=== PATIENT | male | born 1990 | race Caucasian/White ===

== ENCOUNTER 2018-04-23 14:54 | Emergency (ER) | payer BC, MEDICAID ==
[2018-04-23 15:01] VITALS: BP 144/91; PULSE 105; RESP 16; TEMP 98.9; O2SAT 100
[2018-04-23] MEDS ORDERED: White Petrolatum/Mineral Oil Ophth Oint(3.5 gm) OD STA (15:35)
--- NOTE | 2018-04-23 15:38 | C.PDOC ---
History Of Present Illness 27 y/o male presents to the ER with new onset of right-sided facial weakness for two days. The patient admits to difficulty closing right eye when drinking. Otherwise, he denies vision/ eye pain, headache, rash or fever. He also denies any history of chickenpox. Time Seen by Provider: 04/23/18 15:12 Chief Complaint (Nursing): Eye Problem History Per: Patient History/Exam Limitations: no limitations Onset/Duration Of Symptoms: Days Current Symptoms Are (Timing): Still Present Recent travel outside of the [place]: No Past Medical History Reviewed: Historical Data, Nursing Documentation, Vital Signs Vital Signs: Last Vital Signs Temp 98.9 F 04/23/18 14:58 Pulse 105 H 04/23/18 14:58 Resp 16 04/23/18 14:58 BP 144/91 H 04/23/18 14:58 Pulse Ox 100 04/23/18 15:54 - Medical History PMH: No Chronic Diseases Surgical History: No Surg Hx Family History: States: Unknown Family Hx - Social History Hx Alcohol Use: No Hx Substance Use: No - Immunization History Hx Tetanus Toxoid Vaccination: No Hx Influenza Vaccination: No Hx Pneumococcal Vaccination: No Review Of Systems Except As Marked, All Systems Reviewed And Found Negative. Constitutional: Negative for: Fever Eyes: Negative for: Pain, Vision Change Skin: Negative for: Rash Neurological: Negative for: Headache Physical Exam - Physical Exam Appears: Well, Non-toxic, No Acute Distress Skin: Normal Color, Warm, No Rash Head: Atraumatic, Normacephalic Eye(s): bilateral: Normal Inspection, PERRL, EOMI Ear(s): Bilateral: Normal Oral Mucosa: Moist Neck: Normal ROM Chest: Symmetrical Cardiovascular: Rhythm Regular, No Murmur Respiratory: Normal Breath Sounds, Wheezing, Other (NARD) Gastrointestinal/Abdominal: Bowel Sounds, No Soft Extremity: Normal ROM Extremity: Bilateral: Atraumatic, Normal Color And Temperature, Normal ROM Pulses: Left Radial: Normal, Right Radial: Normal Neurological/Psych: Oriented x3, Other (incomplete closing of right eye, flattening on right forehead) Gait: Steady Other Neurological Findings: Other (Vera's Palsy) ED Course And Treatment O2 Sat by Pulse Oximetry: 100 (RA) Pulse Ox Interpretation: Normal Progress Note: Impression: 27 y/o male with right-sided facial weakness. Plan: --predniSONE Tab 60 mg PO Medical Decision Making Medical Decision Making: Eye patch applied. Inability to apply lacrilube due to unavailability. Disposition Counseled Patient/Family Regarding: Diagnosis, Need For Followup, Rx Given - Disposition Referrals: [facility] [Outside] [facility] [Outside] Adriano Washburn MD [Staff Provider] - Disposition: HOME/ ROUTINE Disposition Time: 15:40 Condition: IMPROVED Prescriptions: Mineral Oil/White Petrolatum [Lacri-Lube] 1 applic OU PRN PRN #1 tube PRN Reason: Dry Eyes predniSONE [Prednisone] 60 mg PO DAILY #12 tab Instructions: Vera's Palsy (DC) Forms: [employer] (Qatari), Work Excuse - Clinical Impression Clinical Impression: Vera palsy - 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 - Scribe Statement The provider has reviewed the documentation as recorded by the Scribe (Latoya Hdez) Provider Attestation: All medical record entries made by the Scribe were at my direction and personally dictated by me. I have reviewed the chart and agree that the record accurately reflects my personal performance of the history, physical exam, medical decision making, and the department course for this patient. I have also personally directed, reviewed, and agree with the discharge instructions and disposition.
== END 2018-04-23 15:50 | disposition home or self-care (01) ==
LOC: C.ER 14:54
DX: G51.0 Bell's palsy (principal)

== ENCOUNTER 2018-04-26 22:44 | Emergency (ER) | payer BC ==
[2018-04-26 22:51] VITALS: TEMP 99; O2SAT 99
[2018-04-26 23:12] VITALS: BP 137/87; PULSE 87; RESP 14
--- NOTE | 2018-04-26 23:22 | C.PDOC ---
History Of Present Illness 27 year old male presents to the ER with a complaint of elevated blood pressure. Patient was seen in the ER a few days ago and diagnosed with bells palsy, he followed up with neurology and has been on valtrex, prednisone, and eye lubricant. He takes his blood pressure on a regular basis and tonight he noticed it was a little higher than usually, normally he is at 140s systolic and today he was at 160. In the ER his blood pressure was found to be 137/87. Patient denies any symptoms at this time including chest pain, SOB, headache, nausea, or vomiting. Time Seen by Provider: 04/26/18 22:50 Chief Complaint (Nursing): High Blood Pressure History Per: Patient History/Exam Limitations: no limitations Onset/Duration Of Symptoms: Hrs Current Symptoms Are (Timing): Still Present Associated Symptoms: denies: Chest Pain, Dyspnea, Dizziness, Blurred Vision, Focal Weakness, Headache Quality Of Symptoms: Asymptomatic Exacerbating Factor(s): Pos: None Recent travel outside of the [place]: No Past Medical History Reviewed: Historical Data, Nursing Documentation, Vital Signs Vital Signs: Last Vital Signs Temp 99 F 04/26/18 22:45 Pulse 87 04/26/18 23:11 Resp 14 04/26/18 23:11 BP 137/87 04/26/18 23:11 Pulse Ox 99 04/26/18 23:23 - Medical History PMH: HTN Family History: States: Unknown Family Hx - Social History Hx Alcohol Use: No Hx Substance Use: No - Immunization History Hx Tetanus Toxoid Vaccination: No Hx Influenza Vaccination: No Hx Pneumococcal Vaccination: No Review Of Systems Constitutional: Negative for: Fever, Chills Cardiovascular: Negative for: Chest Pain, Palpitations Respiratory: Negative for: Cough, Shortness of Breath Gastrointestinal: Negative for: Nausea, Vomiting Neurological: Negative for: Weakness, Numbness, Headache Physical Exam - Physical Exam Appears: Non-toxic Skin: Normal Color, Warm, Dry Head: Atraumatic, Normacephalic Eye(s): bilateral: Normal Inspection, PERRL, EOMI Oral Mucosa: Moist Neck: Normal, Supple Chest: Symmetrical, No Tenderness Cardiovascular: Rhythm Regular Respiratory: Normal Breath Sounds, No Rales, No Rhonchi, No Wheezing Gastrointestinal/Abdominal: Soft, No Tenderness Extremity: Normal ROM (x4) Neurological/Psych: Oriented x3, Normal Speech, Other (Right facial droop) Gait: Steady ED Course And Treatment O2 Sat by Pulse Oximetry: 99 Disposition - Disposition Referrals: [facility] [Outside] Disposition: HOME/ ROUTINE Disposition Time: 23:20 Condition: STABLE Instructions: Blood Pressure Testing and Measurement, DASH Diet Forms: [employer] (Kazakh) - Clinical Impression Clinical Impression: Vera palsy, Abnormal blood pressure - Scribe Statement The provider has reviewed the documentation as recorded by the Scribe Sebastian Jaffe All medical record entries made by the Scribe were at my direction and personally dictated by me. I have reviewed the chart and agree that the record accurately reflects my personal performance of the history, physical exam, medical decision making, and the department course for this patient. I have also personally directed, reviewed, and agree with the discharge instructions and disposition.
== END 2018-04-26 23:46 | disposition home or self-care (01) ==
LOC: C.ER 22:44
DX: G51.0 Bell's palsy (principal); I10 Essential (primary) hypertension